=== PATIENT | male | born 1970 | race Hispanic/Latino ===

== ENCOUNTER 2021-08-29 08:17 | Inpatient (IN) | payer MEDICARE ==
[~2021-08-29] VITALS: Ht 182.9 cm; Wt 59.9 kg
[2021-08-29 09:10] LABS: BASOPHILS % (AUTO) 0.5 % (0.0-5.0); EOSINOPHILS % (AUTO) 0.6 % (0.0-8.0); HEMATOCRIT 36.6 % (42-54); LYMPHOCYTES % (AUTO) 15.8 % (21.0-51.0); MEAN CORPUSCULAR HEMOGLOBIN 31.7 pg (27.0-33.0); MEAN CORPUSCULAR HGB CONC 34.2 g/dL (32.0-36.0); MEAN CORPUSCULAR VOLUME 92.9 fL (79-99); MONOCYTES % (AUTO) 7.4 % (3.0-13.0); NEUTROPHILS % (AUTO) 75.4 % (40.0-77.0); PLATELET COUNT (AUTO) 183 K/uL (130-400); RED BLOOD CELL COUNT(AUTO) 3.94 MIL/uL (4.50-6.20); RED CELL DISTRIBUTION WIDTH 13.9 % (11.0-15.5); WHITE BLOOD COUNT (AUTO) 6.3 K/uL (4.8-10.8)
[2021-08-29 09:14] LABS: INR 1.14 (0.85-1.15); PROTHROMBIN TIME 12.3 SEC (9.6-11.6)
[2021-08-29 09:15] LABS: PARTIAL THROMBOPLASTIN TIME 27.7 SEC (26.3-35.5)
[2021-08-29 09:35] LABS: CREATININE 0.9 mg/dL (0.5-1.5); POTASSIUM 4.3 mmol/L (3.5-5.1)
[2021-08-29] MEDS: 0.9%NACL 1000ML 1,000 ML IV SCH ×2 (10:24→20:00)
[2021-08-29] MEDS ORDERED: LEVO125C4 PEG (17:21)
[2021-08-29] MEDS ORDERED: CALC-190 PEG (17:21)
[2021-08-29] MEDS ORDERED: LACT10SO62 PEG (17:21)
[2021-08-29] MEDS ORDERED: FOLI1 PEG (17:21)
[2021-08-29] MEDS ORDERED: LATA7.5D OP (17:21)
[2021-08-29] MEDS ORDERED: HYDR-3421 PEG (17:21)
[2021-08-29] MEDS ORDERED: DIPH50CA37 PO (17:21)
[2021-08-29] MEDS ORDERED: FERR-72 PEG (17:21)
[2021-08-29] MEDS ORDERED: MULT-248 PEG (17:21)
[2021-08-29] MEDS ORDERED: VITA1CAP85 PEG (17:21)
[2021-08-29] MEDS ORDERED: LEVO750T46 PEG (17:21)
[2021-08-29] MEDS ORDERED: DIVA-78 PEG (17:21)
[2021-08-29] MEDS ORDERED: ACET325O5 PEG (17:21)
[2021-08-29] MEDS ORDERED: ATOR10TA69 PEG (17:21)
[2021-08-29] MEDS: FAMOTIDINE 20MG VIAL IV SCH (22:03)
[2021-08-29 23:30] VITALS: BP 118/74
[2021-08-30 04:00] VITALS: BP 117/78
[2021-08-30 04:47] LABS: BASOPHILS % (AUTO) 0.5 % (0.0-5.0); EOSINOPHILS % (AUTO) 2.3 % (0.0-8.0); HEMATOCRIT 32.9 % (42-54); LYMPHOCYTES % (AUTO) 23.6 % (21.0-51.0); MEAN CORPUSCULAR HGB CONC 33.4 g/dL (32.0-36.0); MEAN CORPUSCULAR VOLUME 92.7 fL (79-99); MONOCYTES % (AUTO) 8.7 % (3.0-13.0); NEUTROPHILS % (AUTO) 64.7 % (40.0-77.0); PLATELET COUNT (AUTO) 165 K/uL (130-400); RED BLOOD CELL COUNT(AUTO) 3.55 MIL/uL (4.50-6.20); WHITE BLOOD COUNT (AUTO) 6.5 K/uL (4.8-10.8)
[2021-08-30 05:10] LABS: ALBUMIN 2.7 g/dL (3.5-5.0); BILIRUBIN,TOTAL 0.3 mg/dL (0.2-1.0); CREATININE 0.7 mg/dL (0.5-1.5); POTASSIUM 3.7 mmol/L (3.5-5.1); TOTAL PROTEIN, SERUM 6.6 g/dL (6.0-8.3)
[2021-08-30 06:01] LABS: ERYTHROCYTE SEDIMENTATION RATE 46 MM/HR (0-20)
[2021-08-30] MEDS ORDERED: PHARMACY COMMUNICATION MISC SCH (06:30)
[2021-08-30 08:00] VITALS: BP 107/51
[2021-08-30] MEDS: 0.9%NACL 1000ML 1,000 ML IV SCH ×2 (08:33→22:19)
[2021-08-30] MEDS: VALPROIC ACID (AS SODIUM SALT) 500 MG in 0.9%NACL 100ML 100 ML IV SCH ×2 (08:35→20:44)
[2021-08-30] MEDS: FAMOTIDINE 20MG VIAL IV SCH ×2 (08:35→20:43)
[2021-08-30 11:26] VITALS: BP 93/43
[2021-08-30 16:00] VITALS: BP 125/67
[2021-08-30 20:00] VITALS: BP 127/74
[2021-08-31] VITALS (22 sets, daily range): BP systolic 106–142; BP diastolic 57–88
[2021-08-31 05:38] LABS: HEMATOCRIT 29.4 % (42-54); MEAN CORPUSCULAR HEMOGLOBIN 30.8 pg (27.0-33.0); MEAN CORPUSCULAR VOLUME 93.3 fL (79-99); RED BLOOD CELL COUNT(AUTO) 3.15 MIL/uL (4.50-6.20); RED CELL DISTRIBUTION WIDTH 13.9 % (11.0-15.5); WHITE BLOOD COUNT (AUTO) 5.2 K/uL (4.8-10.8)
[2021-08-31 05:57] LABS: CREATININE 0.6 mg/dL (0.5-1.5); POTASSIUM 3.3 mmol/L (3.5-5.1)
[2021-08-31] MEDS: FAMOTIDINE 20MG VIAL IV SCH ×2 (08:11→20:25)
[2021-08-31] MEDS: VALPROIC ACID (AS SODIUM SALT) 500 MG in 0.9%NACL 100ML 100 ML IV SCH ×2 (08:11→20:25)
[2021-08-31] MEDS ORDERED: PROPOFOL 10 MG/ML 20ML VIAL IV ONE (08:12)
[2021-08-31] MEDS ORDERED: CEFAZOLIN SODIUM 1 GM VIAL ONE (08:16)
[2021-08-31] MEDS ORDERED: HYDROXYZINE 25 MG TABLET PEG PRN (10:30)
[2021-08-31] MEDS ORDERED: ACETAMINOPHEN 325 MG TAB PO PRN (10:30)
[2021-08-31] MEDS ORDERED: LACTULOSE 20 GM/30 ML UDCUP PO PRN (10:30)
[2021-08-31] MEDS ORDERED: DIPHENHYDRAMINE HCL 50 MG CAPSULE PO PRN (10:30)
[2021-08-31] MEDS: 0.9%NACL 1000ML 1,000 ML IV SCH ×2 (12:00→22:00)
[2021-08-31] MEDS ORDERED: ATORVASTATIN 10 MG TABLET PEG SCH (21:00)
[2021-09-01] VITALS: BP 117/66
[2021-09-01 04:00] VITALS: BP 121/69
[2021-09-01] MEDS ORDERED: LEVOTHYROXINE 125 MCG TABLET PO SCH (06:30)
[2021-09-01 07:30] VITALS: BP 121/47
[2021-09-01] MEDS ORDERED: FERROUS SULFATE 325 MG TABLET.DR PO SCH (09:00)
[2021-09-01] MEDS ORDERED: VITAMIN B COMPLEX 1 CAPSULE PEG SCH (09:00)
[2021-09-01] MEDS ORDERED: MULTIVITAMIN WITH MINERALS TABLET PO SCH (09:00)
[2021-09-01] MEDS: FAMOTIDINE 20MG VIAL IV SCH (09:44)
[2021-09-01] MEDS: VALPROIC ACID (AS SODIUM SALT) 500 MG in 0.9%NACL 100ML 100 ML IV SCH (09:45)
[2021-09-01 11:00] VITALS: BP 131/68
[2021-09-01] MEDS ORDERED: COMPOUND IV MISC 1 EACH IVSOLN MISC PRN (11:30)
[2021-09-01 16:00] VITALS: BP 115/47
== END 2021-09-01 18:37 | DRG 393 ==
LOC: EDH 08:17 → EDHIP 09:36 → 3CH 23:11
PROVIDERS: ADMIT Hospitalist; ATTEND Hospitalist
PROC: 0DH63UZ Insertion of Feeding Device into Stomach, Percutaneous Approach (ICD-10-PCS; principal; 2021-08-31)
DX: K94.23 Gastrostomy malfunction (principal); E43 Unspecified severe protein-calorie malnutrition; G40.909 Epilepsy, unspecified, not intractable, without status epilepticus; E78.00 Pure hypercholesterolemia, unspecified; E03.9 Hypothyroidism, unspecified; F41.9 Anxiety disorder, unspecified; E78.5 Hyperlipidemia, unspecified; R13.12 Dysphagia, oropharyngeal phase; F79 Unspecified intellectual disabilities; Y83.8 Other surgical procedures as the cause of abnormal reaction of the patient, or of later complication, without mention of misadventure at the time of the procedure; Y82.8 Other medical devices associated with adverse incidents; K31.89 Other diseases of stomach and duodenum
CPT/HCPCS: 36415; 43246; 74230; 80048; 80053; 80177; 85025; 85027; 85610; 85651; 85730; 92610; 92611; 93005; A4606; G0378; J0690; J2704; J3490; J7030

== ENCOUNTER 2021-10-24 20:16 | Emergency (ER) | payer MEDICARE ==
[~2021-10-24] VITALS: Ht 175.3 cm; Wt 72.6 kg
[~2021-10-24 20:16] MED LIST: ACET325O5 PEG; ATOR10TA69 PEG; CALC-190 PEG; DIPH50CA37 PO; DIVA-78 PEG; FERR-72 PEG; FOLI1 PEG; HYDR-3421 PEG; LACT10SO62 PEG; LATA7.5D OP; LEVO125C4 PEG; LEVO750T46 PEG; MULT-248 PEG; VITA1CAP85 PEG
[2021-10-24 20:24] VITALS: BP 153/87
[2021-10-24 20:33] LABS: BASOPHILS % (AUTO) 0.4 % (0.0-5.0); EOSINOPHILS % (AUTO) 0.1 % (0.0-8.0); HEMATOCRIT 36.9 % (42-54); LYMPHOCYTES % (AUTO) 20.1 % (21.0-51.0); MEAN CORPUSCULAR HEMOGLOBIN 30.8 pg (27.0-33.0); MEAN CORPUSCULAR HGB CONC 32.8 g/dL (32.0-36.0); MEAN CORPUSCULAR VOLUME 93.9 fL (79-99); MONOCYTES % (AUTO) 16.3 % (3.0-13.0); PLATELET COUNT (AUTO) 151 K/uL (130-400); RED BLOOD CELL COUNT(AUTO) 3.93 MIL/uL (4.50-6.20); RED CELL DISTRIBUTION WIDTH 13.6 % (11.0-15.5); WHITE BLOOD COUNT (AUTO) 7.4 K/uL (4.8-10.8)
[2021-10-24] MEDS ORDERED: OLAN20TA35 PO (20:36)
[2021-10-24] MEDS ORDERED: LORA-192 PEG (20:36)
[2021-10-24] MEDS ORDERED: ATOR10 PEG (20:36)
[2021-10-24 20:50] LABS: APPEARANCE,URINE Clear (CLEAR); BILIRUBIN,URINE Negative (NEGATIVE); COLOR,URINE Yellow (YELLOW); GLUCOSE, URINE (UA) Negative (NEGATIVE); KETONES,URINE Trace mg/dL (NEGATIVE); LEUKOCYTE ESTERASE ,URINE Negative (NEGATIVE); NITRATE,URINE Negative (NEGATIVE); OCCULT BLOOD,URINE Negative (NEGATIVE); PH,URINE >=9.0 (5.0-8.0); PROTEIN,URINE Negative (NEGATIVE)
[2021-10-24 20:54] LABS: CREATININE 0.8 mg/dL (0.5-1.5); POTASSIUM 4.1 mmol/L (3.5-5.1)
[2021-10-24 20:59] LABS: ALBUMIN 3.3 g/dL (3.5-5.0); BILIRUBIN,TOTAL 0.2 mg/dL (0.2-1.0); TOTAL PROTEIN, SERUM 7.2 g/dL (6.0-8.3)
[2021-10-24] MEDS ORDERED: LIDOCAINE HCL 2% VISCOUS 15 ML UDCUP PO ONE (21:00)
[2021-10-24] MEDS ORDERED: ONDANSETRON 4MG INJ IVP ONE (21:00)
[2021-10-24] MEDS ORDERED: DICYCLOMINE HCL 10 MG/5 ML ML PO ONE (21:00)
[2021-10-24] MEDS ORDERED: 0.9%NACL 1000ML 1,000 ML IV SCH (21:00)
[2021-10-24] MEDS ORDERED: MAG/ALUM/SIMETH 30 ML UDCUP PO ONE (21:00)
[2021-10-24] MEDS ORDERED: FAMOTIDINE 20MG TAB PO ONE (21:00)
[2021-10-24] MEDS ORDERED: IPRATROPIUM/ALBUTEROL SULFATE 3 ML SOLUTION IH ONE (21:00)
[2021-10-24] MEDS ORDERED: LACT10SO62 PO (21:53)
[2021-10-24] MEDS ORDERED: AMOX200S10 PO (21:53)
[2021-10-24] MEDS ORDERED: ALBU8.5H8 IH (21:53)
[2021-10-24] MEDS ORDERED: CEFTRIAXONE 1G VIAL IVP ONE (22:00)
== END 2021-10-24 22:21 | disposition home or self-care (01) ==
LOC: EDH 20:16
DX: J18.9 Pneumonia, unspecified organism (principal); K29.70 Gastritis, unspecified, without bleeding; K57.30 Diverticulosis of large intestine without perforation or abscess without bleeding; K59.00 Constipation, unspecified; I10 Essential (primary) hypertension; Z20.822 Contact with and (suspected) exposure to COVID-19; F41.9 Anxiety disorder, unspecified; Z93.1 Gastrostomy status
CPT/HCPCS: 36415; 71045; 74176; 80053; 81003; 82140; 82550; 83605; 83690; 84484; 85025; 87635; 87804 ×2; 93005; 94640; 96361; 96374; 96375; 99285; C9803; J0696; J2405; J7030

== ENCOUNTER 2021-10-26 13:48 | Emergency (ER) | payer MEDICARE ==
[~2021-10-26] VITALS: Ht 172.7 cm; Wt 59.4 kg
[~2021-10-26 13:48] MED LIST changes: +ALBU8.5H8 IH; +AMOX200S10 PO; +ATOR10 PEG; +LACT10SO62 PO; +LORA-192 PEG; +OLAN20TA35 PO
[2021-10-26 13:50] VITALS: BP 124/78
[2021-10-26 14:14] LABS: EOSINOPHILS % (AUTO) 1.8 % (0.0-8.0); HEMATOCRIT 37.5 % (42-54); LYMPHOCYTES % (AUTO) 37.4 % (21.0-51.0); MEAN CORPUSCULAR HEMOGLOBIN 30.3 pg (27.0-33.0); MEAN CORPUSCULAR HGB CONC 31.7 g/dL (32.0-36.0); MEAN CORPUSCULAR VOLUME 95.4 fL (79-99); MONOCYTES % (AUTO) 13.1 % (3.0-13.0); NEUTROPHILS % (AUTO) 46.4 % (40.0-77.0); PLATELET COUNT (AUTO) 105 K/uL (130-400); RED BLOOD CELL COUNT(AUTO) 3.93 MIL/uL (4.50-6.20); RED CELL DISTRIBUTION WIDTH 13.6 % (11.0-15.5)
[2021-10-26 14:14] LABS: APPEARANCE,URINE Clear (CLEAR); BILIRUBIN,URINE Negative (NEGATIVE); COLOR,URINE Yellow (YELLOW); GLUCOSE, URINE (UA) Negative (NEGATIVE); KETONES,URINE Negative (NEGATIVE); LEUKOCYTE ESTERASE ,URINE Negative (NEGATIVE); NITRATE,URINE Negative (NEGATIVE); OCCULT BLOOD,URINE Negative (NEGATIVE); PROTEIN,URINE Negative (NEGATIVE)
[2021-10-26 14:24] LABS: CREATININE 0.6 mg/dL (0.5-1.5); POTASSIUM 4.3 mmol/L (3.5-5.1)
[2021-10-26 14:33] LABS: ALBUMIN 3.1 g/dL (3.5-5.0); BILIRUBIN,TOTAL 0.1 mg/dL (0.2-1.0)
== END 2021-10-26 15:57 | disposition home or self-care (01) ==
LOC: EDH 13:48
DX: R10.9 Unspecified abdominal pain (principal); F41.9 Anxiety disorder, unspecified; E03.9 Hypothyroidism, unspecified; F20.9 Schizophrenia, unspecified; Z79.899 Other long term (current) drug therapy; Z98.890 Other specified postprocedural states
CPT/HCPCS: 36415; 71045; 80053; 81003; 83690; 84484; 85025; 93005

== ENCOUNTER 2021-11-06 18:47 | Emergency (ER) | payer MEDICARE ==
[~2021-11-06] VITALS: Ht 165.1 cm; Wt 59.0 kg
[2021-11-06] MEDS ORDERED: DIATR MEGLU/DIATRIZOATE SODIUM 30 ML BOTTLE ONE (19:47)
[2021-11-06 21:37] VITALS: BP 121/62
== END 2021-11-06 22:51 | disposition home or self-care (01) ==
LOC: EDH 18:47
DX: K94.23 Gastrostomy malfunction (principal); F20.9 Schizophrenia, unspecified; Z79.899 Other long term (current) drug therapy
CPT/HCPCS: 74018; 99283; Q9963

== ENCOUNTER 2021-11-10 17:34 | Emergency (ER) | payer MEDICARE ==
[~2021-11-10] VITALS: Ht 172.7 cm; Wt 61.2 kg
[2021-11-10 17:39] VITALS: BP 131/88
[2021-11-10 18:09] LABS: BASOPHILS % (AUTO) 0.9 % (0.0-5.0); EOSINOPHILS % (AUTO) 1.1 % (0.0-8.0); HEMATOCRIT 36.3 % (42-54); LYMPHOCYTES % (AUTO) 21.1 % (21.0-51.0); MEAN CORPUSCULAR HEMOGLOBIN 30.8 pg (27.0-33.0); MEAN CORPUSCULAR HGB CONC 32.8 g/dL (32.0-36.0); MONOCYTES % (AUTO) 8.9 % (3.0-13.0); NEUTROPHILS % (AUTO) 67.6 % (40.0-77.0); PLATELET COUNT (AUTO) 139 K/uL (130-400); RED BLOOD CELL COUNT(AUTO) 3.86 MIL/uL (4.50-6.20); WHITE BLOOD COUNT (AUTO) 7.6 K/uL (4.8-10.8)
[2021-11-10 18:16] LABS: APPEARANCE,URINE CLEAR (CLEAR); BILIRUBIN,URINE NEGATIVE (NEGATIVE); COLOR,URINE YELLOW (YELLOW); GLUCOSE, URINE (UA) NEGATIVE (NEGATIVE); KETONES,URINE NEGATIVE (NEGATIVE); LEUKOCYTE ESTERASE ,URINE NEGATIVE (NEGATIVE); NITRATE,URINE NEGATIVE (NEGATIVE); OCCULT BLOOD,URINE NEGATIVE (NEGATIVE); PROTEIN,URINE NEGATIVE (NEGATIVE); UROBILINOGEN,URINE 0.2 mg/dL (0.2-1.0)
[2021-11-10 18:18] LABS: CREATININE 0.9 mg/dL (0.5-1.5); POTASSIUM 4.2 mmol/L (3.5-5.1)
[2021-11-10 18:23] LABS: ALBUMIN 3.6 g/dL (3.5-5.0); BILIRUBIN,TOTAL 0.2 mg/dL (0.2-1.0); TOTAL PROTEIN, SERUM 7.5 g/dL (6.0-8.3)
== END 2021-11-10 21:17 | disposition home or self-care (01) ==
LOC: EDH 17:34
DX: R53.1 Weakness (principal); F20.9 Schizophrenia, unspecified; Z20.822 Contact with and (suspected) exposure to COVID-19
CPT/HCPCS: 36415; 70450; 80053; 81003; 84484; 85025; 87635; 87804 ×2; 99284; C9803

== ENCOUNTER 2021-11-24 21:59 | Emergency (ER) | payer MEDICARE ==
[~2021-11-24] VITALS: Ht 172.7 cm; Wt 61.2 kg
[2021-11-24 22:58] VITALS: BP 132/73
== END 2021-11-24 23:31 | disposition home or self-care (01) ==
LOC: EDH 21:59
DX: K94.23 Gastrostomy malfunction (principal); E78.00 Pure hypercholesterolemia, unspecified; F41.9 Anxiety disorder, unspecified
CPT/HCPCS: 99281

== ENCOUNTER 2021-11-27 21:05 | Emergency (ER) | payer MEDICARE ==
[2021-11-27 23:28] VITALS: BP 118/60
== END 2021-11-27 23:29 | disposition home or self-care (01) ==
LOC: EDH 21:05
DX: K94.23 Gastrostomy malfunction (principal); E78.00 Pure hypercholesterolemia, unspecified; F41.9 Anxiety disorder, unspecified
CPT/HCPCS: 43762; 74018

== ENCOUNTER 2021-11-28 23:07 | Emergency (ER) | payer MEDICARE ==
[~2021-11-28] VITALS: Ht 165.1 cm; Wt 59.0 kg
[2021-11-28 23:41] VITALS: BP 134/78
== END 2021-11-29 00:49 ==
LOC: EDH 23:07
DX: K94.23 Gastrostomy malfunction (principal); F20.9 Schizophrenia, unspecified; Z79.899 Other long term (current) drug therapy

== ENCOUNTER 2021-12-01 22:45 | Emergency (ER) | payer MEDICARE ==
[2021-12-01 22:59] VITALS: BP 154/84
== END 2021-12-01 23:50 | disposition home or self-care (01) ==
LOC: EDH 22:45
DX: K94.23 Gastrostomy malfunction (principal); F20.9 Schizophrenia, unspecified; Z79.899 Other long term (current) drug therapy

== ENCOUNTER 2022-01-06 21:45 | Emergency (ER) | payer MEDICARE ==
[~2022-01-06 21:45] MED LIST changes: +LEVO750T39 PEG; -LEVO750T46 PEG
[2022-01-06 21:55] VITALS: BP 146/88
[2022-01-06] MEDS ORDERED: DIATR MEGLU/DIATRIZOATE SODIUM 30 ML BOTTLE ONE (23:13)
== END 2022-01-07 00:06 | disposition home or self-care (01) ==
LOC: EDH 21:45
DX: K94.23 Gastrostomy malfunction (principal); F20.9 Schizophrenia, unspecified
CPT/HCPCS: 99284; 43762; 74018; Q9963

== ENCOUNTER 2022-01-07 02:33 | Emergency (ER) | payer MEDICARE ==
[~2022-01-07] VITALS: Ht 165.1 cm; Wt 58.1 kg
[2022-01-07 02:35] VITALS: BP 133/66
== END 2022-01-07 03:12 | disposition home or self-care (01) ==
LOC: EDH 02:33
DX: K94.23 Gastrostomy malfunction (principal); G40.909 Epilepsy, unspecified, not intractable, without status epilepticus; F25.9 Schizoaffective disorder, unspecified; Z79.899 Other long term (current) drug therapy
CPT/HCPCS: 99281

== ENCOUNTER 2022-01-22 20:19 | Emergency (ER) | payer MEDICARE ==
[2022-01-22] MEDS ORDERED: ONDANSETRON 4MG INJ IVP ONE (20:30)
[2022-01-22] MEDS ORDERED: DIATR MEGLU/DIATRIZOATE SODIUM 30 ML BOTTLE ONE (20:44)
[2022-01-22 21:00] LABS: BASOPHILS % (AUTO) 0.4 % (0.0-5.0); EOSINOPHILS % (AUTO) 0.4 % (0.0-8.0); HEMATOCRIT 41.6 % (42-54); LYMPHOCYTES % (AUTO) 12.3 % (21.0-51.0); MEAN CORPUSCULAR HEMOGLOBIN 31.6 pg (27.0-33.0); MEAN CORPUSCULAR HGB CONC 33.2 g/dL (32.0-36.0); MEAN CORPUSCULAR VOLUME 95.2 fL (79-99); MONOCYTES % (AUTO) 6.1 % (3.0-13.0); NEUTROPHILS % (AUTO) 80.5 % (40.0-77.0); PLATELET COUNT (AUTO) 174 K/uL (130-400); RED BLOOD CELL COUNT(AUTO) 4.37 MIL/uL (4.50-6.20); WHITE BLOOD COUNT (AUTO) 11.8 K/uL (4.8-10.8)
[2022-01-22 21:21] LABS: CARBON DIOXIDE 32 mmol/L (21-32); CHLORIDE 98 mmol/L (101-111); CREATININE 0.9 mg/dL (0.5-1.5); GLOMERULAR FILTR. RATE CALC 94 mL/min (>60); GLUCOSE,RANDOM 94 mg/dL (70-105); POTASSIUM 3.7 mmol/L (3.5-5.1); SODIUM SERUM 136 mmol/L (136-145); UREA NITROGEN, BLOOD 18 mg/dL (7-18)
[2022-01-22 21:31] LABS: ALANINE AMINOTRANSFERASE 22 U/L (12-78); ALBUMIN 4.3 g/dL (3.5-5.0); ASPARTATE AMINOTRANSFERASE 22 U/L (10-37); LIPASE 214 U/L (114-286)
[2022-01-22] MEDS ORDERED: LACT10PA5 PO (21:38)
[2022-01-22 21:40] LABS: CRP QUANTITATIVE < 2.00 mg/L (0.00-9.0)
[2022-01-22] MEDS ORDERED: MAGNESIUM CITRATE 296 ML SOLUTION PO ONE (22:00)
[2022-01-22] MEDS ORDERED: LACTULOSE 20 GM/30 ML UDCUP PO ONE (22:00)
== END 2022-01-22 22:34 | disposition home or self-care (01) ==
LOC: EDH 20:19
DX: K94.23 Gastrostomy malfunction (principal); K59.00 Constipation, unspecified; F25.9 Schizoaffective disorder, unspecified; G40.909 Epilepsy, unspecified, not intractable, without status epilepticus
CPT/HCPCS: 99285; 43762; 74176; 84484; 80053; 83690; 85025; 83605; 86140; 36415; 74018; Q9963

== ENCOUNTER 2022-03-05 00:23 | Emergency (ER) | payer MEDICARE ==
[~2022-03-05 00:23] MED LIST changes: +LACT10PA5 PO
[2022-03-05] MEDS ORDERED: LIDOCAINE HCL 2% VISCOUS 15 ML UDCUP ONE (01:25)
[2022-03-05] MEDS ORDERED: LIDOCAINE HCL 2% VISCOUS 15 ML UDCUP PO ONE (01:30)
[2022-03-05] MEDS ORDERED: DIATR MEGLU/DIATRIZOATE SODIUM 30 ML BOTTLE ONE (02:11)
[2022-03-05 04:31] VITALS: BP 135/78
== END 2022-03-05 05:02 | disposition home or self-care (01) ==
LOC: EDH 00:23
DX: K94.23 Gastrostomy malfunction (principal); F25.9 Schizoaffective disorder, unspecified; G40.909 Epilepsy, unspecified, not intractable, without status epilepticus; Z79.899 Other long term (current) drug therapy
CPT/HCPCS: 99284; 43762; 74018; Q9963

== ENCOUNTER 2022-07-02 19:22 | Emergency (ER) | payer MEDICARE ==
[~2022-07-02] VITALS: Ht 170.2 cm; Wt 56.7 kg
[~2022-07-02 19:22] MED LIST changes: -LACT10SO62 PEG; -LACT10SO62 PO; +LACT10SO95 PEG; +LACT10SO95 PO
[2022-07-02 19:24] VITALS: BP 133/72
[2022-07-02] MEDS ORDERED: DIATR MEGLU/DIATRIZOATE SODIUM 30 ML BOTTLE ONE (19:29)
== END 2022-07-02 21:14 | disposition home or self-care (01) ==
LOC: EDH 19:22
DX: K94.23 Gastrostomy malfunction (principal); Z79.2 Long term (current) use of antibiotics; Z79.899 Other long term (current) drug therapy
CPT/HCPCS: 99284; 43762; 74018; Q9963

== ENCOUNTER 2022-07-14 19:33 | Emergency (ER) | payer MEDICARE ==
[2022-07-14 19:35] VITALS: BP 109/73
[2022-07-14] MEDS ORDERED: DIATR MEGLU/DIATRIZOATE SODIUM 30 ML BOTTLE ONE (19:52)
== END 2022-07-14 21:04 | disposition home or self-care (01) ==
LOC: EDH 19:33
DX: K94.23 Gastrostomy malfunction (principal); F20.9 Schizophrenia, unspecified; Z79.899 Other long term (current) drug therapy
CPT/HCPCS: 99284; 43762; 74018; Q9963

== ENCOUNTER 2022-07-17 21:20 | Emergency (ER) | payer MEDICARE ==
[~2022-07-17] VITALS: Ht 162.6 cm; Wt 59.0 kg
[2022-07-17] MEDS ORDERED: LORAZEPAM 2 MG/ML 1 ML VIAL IM ONE (22:00)
[2022-07-17] MEDS ORDERED: HALOPERIDOL INJ 5 MG/ML VIAL IM SCH (22:00)
[2022-07-17] MEDS ORDERED: LIDOCAINE HCL 2% VISCOUS 15 ML UDCUP ONE (22:24)
[2022-07-17] MEDS ORDERED: DIATR MEGLU/DIATRIZOATE SODIUM 30 ML BOTTLE ONE (22:49)
[2022-07-17] MEDS ORDERED: LIDOCAINE HCL 2% VISCOUS 15 ML UDCUP PO ONE (23:00)
[2022-07-18 03:45] VITALS: BP 114/70
== END 2022-07-18 03:46 | disposition home or self-care (01) ==
LOC: EDH 21:20
DX: T85.598A Other mechanical complication of other gastrointestinal prosthetic devices, implants and grafts, initial encounter (principal); F25.9 Schizoaffective disorder, unspecified; G40.909 Epilepsy, unspecified, not intractable, without status epilepticus; Y83.8 Other surgical procedures as the cause of abnormal reaction of the patient, or of later complication, without mention of misadventure at the time of the procedure; Y92.89 Other specified places as the place of occurrence of the external cause
CPT/HCPCS: 99284; 43762; 74018; 96372 ×2; Q9963; J1630; J2060

== ENCOUNTER 2022-07-19 12:29 | Emergency (ER) | payer MEDICARE ==
[~2022-07-19] VITALS: Ht 185.4 cm; Wt 79.4 kg
[2022-07-19] MEDS ORDERED: DIATR MEGLU/DIATRIZOATE SODIUM 30 ML BOTTLE ONE (13:58)
[2022-07-19 15:06] VITALS: BP 114/75
== END 2022-07-19 15:06 | disposition home or self-care (01) ==
LOC: EDH 12:29
DX: R13.10 Dysphagia, unspecified (principal); F20.9 Schizophrenia, unspecified; F79 Unspecified intellectual disabilities; Z43.1 Encounter for attention to gastrostomy; Z98.890 Other specified postprocedural states
CPT/HCPCS: 99283; 96374; 74018; Q9963

== ENCOUNTER 2022-08-04 16:36 | Emergency (ER) | payer MEDICARE ==
[~2022-08-04] VITALS: Ht 172.7 cm; Wt 49.9 kg
[2022-08-04 17:05] LABS: BASOPHILS % (AUTO) 0.6 % (0.0-5.0); EOSINOPHILS % (AUTO) 1.1 % (0.0-8.0); HEMATOCRIT 31.5 % (42-54); LYMPHOCYTES % (AUTO) 20.6 % (21.0-51.0); MEAN CORPUSCULAR HEMOGLOBIN 31.4 pg (27.0-33.0); MEAN CORPUSCULAR HGB CONC 32.1 g/dL (32.0-36.0); MEAN CORPUSCULAR VOLUME 97.8 fL (79-99); NEUTROPHILS % (AUTO) 66.3 % (40.0-77.0); PLATELET COUNT (AUTO) 158 K/uL (130-400); RED BLOOD CELL COUNT(AUTO) 3.22 MIL/uL (4.50-6.20); RED CELL DISTRIBUTION WIDTH 13.8 % (11.0-15.5); WHITE BLOOD COUNT (AUTO) 5.3 K/uL (4.8-10.8)
[2022-08-04 17:10] LABS: APPEARANCE,URINE CLEAR (CLEAR); BILIRUBIN,URINE NEGATIVE (NEGATIVE); COLOR,URINE YELLOW (YELLOW); GLUCOSE, URINE (UA) NEGATIVE (NEGATIVE); KETONES,URINE NEGATIVE (NEGATIVE); LEUKOCYTE ESTERASE ,URINE NEGATIVE Leu/uL (NEGATIVE); NITRATE,URINE NEGATIVE (NEGATIVE); OCCULT BLOOD,URINE SMALL (NEGATIVE); PH,URINE 6.5 (5.0-8.0); PROTEIN,URINE NEGATIVE (NEGATIVE); UROBILINOGEN,URINE 0.2 mg/dL (0.2-1.0)
[2022-08-04 17:20] LABS: ALBUMIN 2.9 g/dL (3.5-5.0); TOTAL PROTEIN, SERUM 6.8 g/dL (6.0-8.3)
[2022-08-04 17:24] LABS: MUCUS,URINE RARE LPF (None Seen); SQUAMOUS EPITHELIAL CELL,UR RARE /HPF (0-2)
[2022-08-04 19:43] VITALS: BP 108/68
== END 2022-08-04 19:45 | disposition home or self-care (01) ==
LOC: EDH 16:36
DX: R33.8 Other retention of urine (principal); R56.9 Unspecified convulsions; F20.9 Schizophrenia, unspecified; Z79.899 Other long term (current) drug therapy; Z98.890 Other specified postprocedural states
CPT/HCPCS: 36415; 51702; 80053; 81001; 83690; 85025

== ENCOUNTER → 2022-10-12 | Outpatient (CLI) | payer MEDICARE | END | disposition home or self-care (01) | LOC: RAH 13:11 | PROVIDERS: ATTEND Family Medicine | DX: R13.10 Dysphagia, unspecified (principal); R63.30 Feeding difficulties, unspecified | CPT/HCPCS: 74230; 92611 ==